=== PATIENT | male | born 1950 | race Caucasian/White ===

== ENCOUNTER 2024-04-08 07:42 | Inpatient (IN) | payer OTHER, MEDICAID, MEDICARE ==
[2024-04-08] VITALS (40 sets, daily range): BP systolic 108–153; BP diastolic 71–93; PULSE 90–136; RESP 8–30; TEMP 36.89184–37.3632; O2SAT 86–100
[~2024-04-08] VITALS: Ht 165.1 cm; Wt 67.1 kg
[2024-04-08] MEDS ORDERED: VANCOMYCIN 1000MG/250ML 250 ML IV SCH ×2 (08:15)
[2024-04-08] MEDS ORDERED: CEFEPIME 2GM IN DEXT 5% 100ML IV ONE (08:15)
[2024-04-08] MEDS: SODIUM CHLORIDE 0.9% (SEPSIS BOLUS) IV ONE (08:25)
[2024-04-08 08:29] LABS: HEMATOCRIT. 38.9 % (42.0-52.0); HEMOGLOBIN. 12.3 g/dL (14.0-18.0); MEAN CORPUSCULAR HEMOGLOBIN 30.4 pg (28.0-32.0); MEAN CORPUSCULAR HGB CONC 31.7 g/dL (31.0-37.0); MEAN CORPUSCULAR VOLUME 95.8 fL (80.0-94.0); MEAN PLATELET VOLUME 6.1 fl (7.4-10.4); PLATELET 159 x1000/uL (130-400); RED BLOOD CELL COUNT 4.06 mill/uL (4.7-6.1); RED CELL DISTRIBUTION WIDTH 17.9 % (11.6-14.6); WHITE BLOOD COUNT 13.4 x1000/uL (4.5-11.0)
[2024-04-08 08:39] LABS: CHLORIDE 103 mEq/L (98-107); SODIUM 138 mEq/L (136-145)
[2024-04-08 08:40] LABS: CALCIUM 8.8 mg/dL (8.7-10.4); CARBON DIOXIDE 22 mEq/L (21-32)
[2024-04-08 08:45] LABS: CREATININE 0.4 mg/dL (0.6-1.3); GLUCOSE 120 mg/dL (70-105); UREA NITROGEN BLOOD 6 mg/dL (9-23)
[2024-04-08 08:46] LABS: TROPONIN I HIGH SENSITIVITY 17 ng/L (3.0-53)
[2024-04-08 08:47] LABS: ALANINE AMINOTRANSFERASE 26 IU/L (10-49); ALBUMIN 3.8 g/dL (3.2-4.8); ASPARTATE AMINOTRANSFERASE 21 IU/L (<34); BILIRUBIN DIRECT 0.3 mg/dL (<=3.0); BILIRUBIN TOTAL 0.7 mg/dL (0.1-1.0); PROTEIN TOTAL 6.4 g/dL (6.0-8.3)
[2024-04-08 08:50] LABS: LACTIC ACID 3.6 mmol/L (0.4-2.0)
[2024-04-08] MEDS ORDERED: VANCOMYCIN 1G PREMIX 250 ML IV NR (09:00)
[2024-04-08] MEDS ORDERED: VANCOMYCIN 1G PREMIX 200 ML IV SCH (09:00)
[2024-04-08] MEDS: VANCOMYCIN 1G PREMIX 200 ML IV NR (09:06)
[2024-04-08] MEDS: MAGNESIUM 2 G PREMIX 50 ML IV ONE (09:31)
[2024-04-08 09:38] LABS: INR 1.1; PROTHROMBIN TIME 11.8 sec (9.6-11.0)
[2024-04-08] MEDS: KCL 20MEQ/100ML PREMIX 100 ML IV SCH ×2 (10:13→13:38)
[2024-04-08] MEDS: ACETAMINOPHEN 650MG SUPP PR SCH (10:13)
[2024-04-08] MEDS ORDERED: AMIODARONE 360MG/200ML 200 ML IV STA (10:27)
[2024-04-08] MEDS ORDERED: AMIODARONE 150MG/100ML D5W 100 ML IV ONE (10:45)
[2024-04-08] MEDS: AMIODARONE HCL 50MG/ML 3ML VIAL IV ONE (11:04)
[2024-04-08] MEDS: AMIODARONE 360MG/200ML 200 ML IV SCH ×2 (11:15→17:45)
[2024-04-08 11:25] LABS: TRIGLYCERIDE 129 mg/dL (0-150)
[2024-04-08 11:26] LABS: LDL CHOLESTEROL 61 mg/dL (5-100)
[2024-04-08 11:27] LABS: CHOLESTEROL 132 mg/dL (<200); HDL CHOLESTEROL 44 mg/dL (>55)
[2024-04-08 11:30] LABS: T4 FREE 1.37 ng/dL (0.89-1.76); THYROID STIMULATING HORMONE 1.38 uIU/mL (0.55-4.78)
[2024-04-08] MEDS: CEFEPIME 2GM/100ML 100 ML IV SCH (11:40)
[2024-04-08 11:43] LABS: TROPONIN I HIGH SENSITIVITY 82 ng/L (3.0-53)
[2024-04-08 12:36] LABS: CLARITY URINE CLOUDY (CLEAR); COLOR URINE YELLOW (YELLOW); GLUCOSE URINE NEGATIVE (NEGATIVE); KETONES URINE 2+ (NEGATIVE); LEUKOCYTE ESTERASE URINE 2+ (NEGATIVE); NITRITE URINE NEGATIVE (NEGATIVE); OCCULT BLOOD URINE TRACE (NEGATIVE); PH URINE 5.5 (4.5-8.0); PROTEIN URINE NEGATIVE (NEGATIVE); SPECIFIC GRAVITY URINE 1.012 (1.005-1.030); UROBILINOGEN URINE 0.2 E.U./dL (0.2-1.0)
[2024-04-08 12:49] LABS: SQUAMOUS EPITHELIAL CELL URINE NONE SEEN /lpf (RARE/1+)
[2024-04-08 12:50] LABS: BACTERIA URINE 3+; RBC URINE 0-2 /hpf (0-2); WBC URINE 25-50 /hpf (0-2); YEAST URINE NONE SEEN
[2024-04-08] MEDS ORDERED: KEPP500 PO (13:17)
[2024-04-08] MEDS ORDERED: PROT40 PO (13:17)
[2024-04-08 13:26] LABS: PLATELET ESTIMATE NORMAL
[2024-04-08] MEDS: PANTOPRAZOLE SODIUM 40 MG/VIAL IV SCH (13:32)
[2024-04-08] MEDS: PIPERACILLIN/TAZO 3.375G/50ML 50 ML IV SCH (13:33)
[2024-04-08] MEDS: DEXT 5%/0.45% NACL 1000ML 1,000 ML IV SCH (13:34)
[2024-04-08] MEDS: VANCOMYCIN 1G PREMIX 200 ML IV SCH (13:35)
[2024-04-08] MEDS ORDERED: NALOXONE HCL 0.4MG/ML VIAL IV PRN (16:00)
[2024-04-08] MEDS ORDERED: HYDROCODONE/ACETAMINOPHEN 5/325MG TABLET PO PRN (16:00)
[2024-04-08 17:15] LABS: CREATINE KINASE MB FRACTION 1.6 ng/mL (0.5-3.6)
[2024-04-08] MEDS: DEXAMETHASONE 4MG/ML 1ML VIAL IV SCH (17:45)
[2024-04-08] MEDS ORDERED: ENOXAPARIN 80MG/0.8ML SYR SUBCUT SCH (18:15)
[2024-04-08] MEDS ORDERED: GADOTERATE MEGLUMINE 5 MMOL/10 ML VIAL IV ONE (18:21)
[2024-04-08] MEDS ORDERED: HEPARIN 25,000 UNITS PREMIX 250 ML IV PRN (18:30)
[2024-04-08] MEDS ORDERED: HEPARIN 5000 UNITS/ML VIAL IV PRN ×2 (18:30)
[2024-04-08] MEDS ORDERED: HEPARIN 5000 UNITS/ML VIAL IV SCH (18:30)
[2024-04-08] MEDS: LEVETIRACETAM 1000MG PREMIX 100 ML IV SCH (20:16)
[2024-04-08] MEDS: IPRATROPIUM/ALBUTEROL 0.5-3(2.5)MG/3ML NEB HHN SCH (20:28)
[2024-04-08] MEDS ORDERED: LEVETIRACETAM 500MG in NACL 100ML PREMIX IV SCH (21:00)
[2024-04-08] MEDS ORDERED: IOHEXOL-350 100 ML BOTTLE ONE (21:49)
[2024-04-08] MEDS: AMIODARONE 200MG TABLET PO SCH (23:47)
[2024-04-09] VITALS (18 sets, daily range): BP systolic 99–137; BP diastolic 61–84; PULSE 61–99; RESP 16–37; TEMP 36.3918–37.05852; O2SAT 89–100
[2024-04-09 00:28] LABS: CREATINE KINASE MB FRACTION 1.9 ng/mL (0.5-3.6)
[2024-04-09 06:06] LABS: CHLORIDE 104 mEq/L (98-107); SODIUM 139 mEq/L (136-145)
[2024-04-09 06:07] LABS: CARBON DIOXIDE 25 mEq/L (21-32); HEMATOCRIT. 34.8 % (42.0-52.0); HEMOGLOBIN. 11.3 g/dL (14.0-18.0); MEAN CORPUSCULAR HEMOGLOBIN 29.9 pg (28.0-32.0); MEAN CORPUSCULAR HGB CONC 32.5 g/dL (31.0-37.0); MEAN CORPUSCULAR VOLUME 91.9 fL (80.0-94.0); MEAN PLATELET VOLUME 6.7 fl (7.4-10.4); PLATELET 137 x1000/uL (130-400); RED BLOOD CELL COUNT 3.79 mill/uL (4.7-6.1); RED CELL DISTRIBUTION WIDTH 17.6 % (11.6-14.6); WHITE BLOOD COUNT 6.9 x1000/uL (4.5-11.0)
[2024-04-09 06:08] LABS: CALCIUM 8.4 mg/dL (8.7-10.4)
[2024-04-09 06:09] LABS: CREATINE KINASE MB FRACTION 0.9 ng/mL (0.5-3.6); DIFFERENTIAL COMMENT 1
[2024-04-09 06:12] LABS: CREATINE KINASE 19 IU/L (46-171); CREATININE 0.4 mg/dL (0.6-1.3); GLUCOSE 206 mg/dL (70-105)
[2024-04-09 06:18] LABS: POTASSIUM 2.4 mEq/L (3.5-5.1); UREA NITROGEN BLOOD < 5 mg/dL (9-23)
[2024-04-09] MEDS ORDERED: THROMBIN (BOVINE) 5000 UNITS/VIAL TOP ONE (06:31)
[2024-04-09] MEDS ORDERED: GENTAMICIN SULF 40MG/ML 2ML VIAL ONE (06:32)
[2024-04-09] MEDS ORDERED: LIDOCAINE HCL/EPINEPHRINE 1%-EPI 1:100,000 20ML VIAL ONE (06:32)
[2024-04-09] MEDS ORDERED: BACITRACIN 14GM TUBE TOP ONE (06:32)
[2024-04-09] MEDS: KCL 20MEQ/100ML PREMIX 100 ML IV ONE (08:03)
[2024-04-09] MEDS ORDERED: ENOXAPARIN 40MG/0.4ML SYR SUBCUT SCH (09:00)
[2024-04-09] MEDS: ENOXAPARIN 80MG/0.8ML SYR SUBCUT SCH (09:28)
[2024-04-09] MEDS: POTASSIUM CHLORIDE 40 MEQ in DEXT 5% WATER 230 ML IV ONE (12:40)
[2024-04-09] MEDS: LORAZEPAM 2MG/ML INJ IV NR (12:40)
[2024-04-09 16:09] LABS: PLATELET ESTIMATE NORMAL
[2024-04-09] MEDS: LORAZEPAM 2MG/ML INJ IV PRN (16:22)
[2024-04-09] MEDS: MORPHINE SULFATE 2 MG/ML INJ (NOT FOR IM USE) IV PRN (20:53)
[2024-04-10] VITALS (8 sets, daily range): BP systolic 117–130; BP diastolic 70–79; PULSE 60–91; RESP 16–22; TEMP 28.8912–36.33624; O2SAT 93–99
[2024-04-11] VITALS: BP 127/72; PULSE 82; RESP 21; TEMP 36.28068; O2SAT 98
[2024-04-11 04:00] VITALS: BP 145/62; PULSE 65; RESP 20; TEMP 35.78064; O2SAT 97
[2024-04-11 08:00] VITALS: BP 145/81; PULSE 68; RESP 18; TEMP 36.22512; O2SAT 97
[2024-04-11 08:27] LABS: HEMATOCRIT. 28.5 % (42.0-52.0); HEMOGLOBIN. 9.3 g/dL (14.0-18.0); LYMPHOCYTES % 8.6 % (20.0-50.0); MEAN CORPUSCULAR HEMOGLOBIN 30.1 pg (28.0-32.0); MEAN CORPUSCULAR HGB CONC 32.6 g/dL (31.0-37.0); MEAN CORPUSCULAR VOLUME 92.3 fL (80.0-94.0); MEAN PLATELET VOLUME 7.1 fl (7.4-10.4); MONOCYTES % 2.9 % (2.0-8.0); NEUTROPHILS % 88.5 % (40.0-76.0); PLATELET 139 x1000/uL (130-400); RED BLOOD CELL COUNT 3.09 mill/uL (4.7-6.1); RED CELL DISTRIBUTION WIDTH 17.2 % (11.6-14.6); WHITE BLOOD COUNT 5.7 x1000/uL (4.5-11.0)
[2024-04-11 08:35] LABS: CARBON DIOXIDE 29 mEq/L (21-32); CHLORIDE 106 mEq/L (98-107); POTASSIUM 3.5 mEq/L (3.5-5.1); SODIUM 142 mEq/L (136-145)
[2024-04-11 08:36] LABS: CALCIUM 8.9 mg/dL (8.7-10.4)
[2024-04-11 08:41] LABS: ALBUMIN 2.9 g/dL (3.2-4.8); CREATININE 0.3 mg/dL (0.6-1.3); GLUCOSE 142 mg/dL (70-105); UREA NITROGEN BLOOD 7 mg/dL (9-23)
[2024-04-11 08:43] LABS: PHOSPHORUS 1.8 mg/dL (2.5-4.9)
[2024-04-11] MEDS: FAMOTIDINE 20MG/2ML VIAL IV NR (10:17)
[2024-04-11 12:00] VITALS: BP 153/82; PULSE 73; RESP 18; TEMP 36.3918; O2SAT 97
[2024-04-11 16:00] VITALS: BP 148/84; PULSE 84; RESP 18; TEMP 36.28068; O2SAT 93
[2024-04-11 20:00] VITALS: BP 145/81; PULSE 75; RESP 21; TEMP 35.8362; O2SAT 97
[2024-04-12] VITALS: BP 154/86; PULSE 82; RESP 20; TEMP 35.78064; O2SAT 96
[2024-04-12 04:00] VITALS: BP 148/87; PULSE 93; RESP 20; TEMP 35.66952; O2SAT 96
[2024-04-12 08:00] VITALS: BP 157/85; PULSE 83; RESP 18; TEMP 36.78072; O2SAT 98
[2024-04-12] MEDS: LORAZEPAM 2MG/ML INJ IV PRN (11:58)
[2024-04-12 12:00] VITALS: BP 123/75; PULSE 90; RESP 20; TEMP 36.50292; O2SAT 96
[2024-04-12] MEDS ORDERED: GUAI355S6 MT (13:55)
[2024-04-12 14:26] VITALS: RESP 19
[2024-04-12 14:36] VITALS: BP 141/85; PULSE 94; TEMP 98.3; O2SAT 97
== END 2024-04-12 15:20 | disposition home or self-care (01) | DRG 871 ==
LOC: ER 07:42 → MICUNO 10:42 → EDBEDREQTM 10:45 → EDBEDREQSVC 10:45 → EDBEDREQ 10:45 → 7EST 04-09 02:25
PROVIDERS: ADMIT Family Medicine Adult Medicine; ATTEND Family Medicine Adult Medicine
DX: A41.9 Sepsis, unspecified organism (principal); G93.41 Metabolic encephalopathy; L89.323 Pressure ulcer of left buttock, stage 3; L89.313 Pressure ulcer of right buttock, stage 3; I21.A1 Myocardial infarction type 2; G93.6 Cerebral edema; J96.01 Acute respiratory failure with hypoxia; I26.99 Other pulmonary embolism without acute cor pulmonale; D68.59 Other primary thrombophilia; I82.412 Acute embolism and thrombosis of left femoral vein; N39.0 Urinary tract infection, site not specified; E87.20 Acidosis, unspecified; G81.94 Hemiplegia, unspecified affecting left nondominant side; J98.11 Atelectasis; R65.20 Severe sepsis without septic shock; D53.9 Nutritional anemia, unspecified; I44.7 Left bundle-branch block, unspecified; E83.42 Hypomagnesemia; E87.6 Hypokalemia; G40.909 Epilepsy, unspecified, not intractable, without status epilepticus; Z51.5 Encounter for palliative care; Z66 Do not resuscitate; Z74.01 Bed confinement status; Z85.01 Personal history of malignant neoplasm of esophagus; Z92.21 Personal history of antineoplastic chemotherapy; K21.9 Gastro-esophageal reflux disease without esophagitis; R15.9 Full incontinence of feces; R73.9 Hyperglycemia, unspecified; R91.1 Solitary pulmonary nodule; S31.000A Unspecified open wound of lower back and pelvis without penetration into retroperitoneum, initial encounter; X58.XXXA Exposure to other specified factors, initial encounter; Y93.89 Activity, other specified; Y92.89 Other specified places as the place of occurrence of the external cause; Y99.8 Other external cause status
CPT/HCPCS: 36415; 70553; 71045; 71275; 80048; 80061; 80076; 81003; 82040; 82550; 82553; 82962; 83036; 83605; 83735; 83880; 84100; 84134; 84145; 84439; 84443; 84484; 85025; 85379; 86850; 86900; 87077; 87186; 93005; 93306; 93970; 94640; 99291; A9577; J0282; J0692; J1100; J1580; J1650; J1953; J2060; J2270; J2470; J2543; J3370; J3475; J3480; J3490; J7030; J7060; Q9967